=== PATIENT | female | born 1985 | race American Indian/Alaskan Native ===

== ENCOUNTER 2017-06-22 19:32 | Emergency (ER) | payer SELFPAY ==
[2017-06-22 19:46] VITALS: BP 172/75
[2017-06-22] MEDS ORDERED: Naproxen 500 MG Tab PO ONE (20:07)
--- NOTE | 2017-06-22 20:13 | EDM.PDOC ---
ED HPI GENERAL MEDICAL PROBLEM - General Chief Complaint: ENT Problem Stated Complaint: TOOTH PAIN Time Seen by Provider: 06/22/17 19:44 Source of Information: Reports: Patient, RN Notes Reviewed, Other ([place]) History Limitations: Reports: No Limitations - History of Present Illness INITIAL COMMENTS - FREE TEXT/NARRATIVE: The patient states that she has had a lower right toothache for the past 3 months. She has been experiencing episodic sharp pain. She states that she last saw a dentist around 3 months ago, who recommended that she have virtually all of her teeth removed. She states that while she has dental coverage at [facility], she cannot afford to drive all the way out there, and is therefore waiting for her 's dental insurance to become active. She denies recent fever or oral drainage. The patient does not have a PCP. Right Lower Tooth/Teeth Pain Score (Numeric/FACES): 10 - Related Data Allergies Allergy/AdvReac Type Severity Reaction Status Date / Time No Known Allergies Allergy Verified 06/22/17 19:46 Home Meds: Home Meds Insulin Detemir [Levemir] 80 unit SUBCUT BID 06/22/17 [History] Insulin Glarg,Human.Rec.Analog [LantUS] 0 unit SUBCUT ASDIRECTED 06/22/17 [ History] Naproxen 500 mg PO Q12H PRN #20 tablet 06/22/17 [Rx] Past Medical History Endocrine/Metabolic History: Reports: Diabetes, Type II, Obesity/BMI 30+ - Past Surgical History HEENT Surgical History: Reports: Tonsillectomy GI Surgical History: Reports: Appendectomy Musculoskeletal Surgical History: Reports: Other (See Below) (Left knee repair, open) Social & Family History - Tobacco Use Smoking Status *Q: Current Every Day Smoker Years of Tobacco use: 5 Packs/Tins Daily: 0.5 - Alcohol Use Alcohol Use History: No - Recreational Drug Use Recreational Drug Use: No - Living Situation & Occupation Living situation: Reports: , with Spouse 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) ED ROS ENT - Review of Systems Review Of Systems: See Below Constitutional: Reports: No Symptoms HEENT: Reports: Dental Pain (as per the HPI) Respiratory: Reports: No Symptoms Cardiovascular: Reports: No Symptoms Endocrine: Reports: No Symptoms GI/Abdominal: Reports: No Symptoms : Reports: No Symptoms Musculoskeletal: Reports: No Symptoms Skin: Reports: No Symptoms Neurological: Reports: No Symptoms Psychiatric: Reports: No Symptoms Hematologic/Lymphatic: Reports: No Symptoms Immunologic: Reports: No Symptoms ED EXAM, ENT - Physical Exam Exam: See Below Exam Limited By: No Limitations General Appearance: Alert, WD/WN, No Apparent Distress Eye Exam: Bilateral Eye: Normal Inspection Ears: Normal External Exam, Normal Canal, Hearing Grossly Normal, Normal TMs Nose: Normal Inspection, Normal Mucousa, No Blood Mouth/Throat: Normal Inspection, Normal Lips, Normal Oropharynx, Other (Teeth #1 , 2 absent. Tooth #3 with fillings. Teeth #4, 5 with anterior caries. Teeth #11 , 12, 13 with severe caries. Teeth #14, 15, 16, 17, 18, 19 absent. Tooth #20 with advanced decay. Tooth #21 with anterior jonathon. Tooth #22 with severe jonathon. Tooth #24 with anterior jonathon. Teeth #26, 27, 28, 29 with anterior caries. Tooth #30 (the tooth of concern) with advanced decay and likely fracture. Teeth #31, 32 absent. No gingival swelling or pointing.) Head: Atraumatic, Normocephalic Neck: Normal Inspection, Supple, Non-Tender, Full Range of Motion. No: Lymphadenopathy (L), Lymphadenopathy (R) Course - Vital Signs Last Recorded V/S: Last Vital Signs Temp 36.1 C 06/22/17 19:44 Pulse 74 06/22/17 19:44 Resp 16 06/22/17 19:44 BP 172/75 H 06/22/17 19:44 Pulse Ox 96 06/22/17 19:44 - Orders/Labs/Meds Meds: Medications Discontinued Medications Generic Name Dose Route Start Last Admin Trade Name Jose Luis PRN Reason Stop Dose Admin Naproxen 500 mg 06/22/17 20:07 06/22/17 20:23 Naprosyn PO 06/22/17 20:08 500 mg ONETIME ONE Administration - Re-Assessments/Exams Free Text/Narrative Re-Assessment/Exam: 06/22/17 20:08 The patient has advanced dental decay. Tooth #30, the tooth of concern, appears to be fractured with advanced decay, however, I do not any signs of infection. I will start the patient on naproxen and e-prescribe the same. We will provide the patient a list of local dentists. I suggested to her that she use Orajel or similar dental pain relief, along with a temporary cap, available at pharmacies. Departure - Departure Time of Disposition: 20:09 Disposition: Home, Self-Care 01 Condition: Good Clinical Impression: Dentalgia, Dental decay - Discharge Information Prescriptions: Naproxen 500 mg PO Q12H PRN #20 tablet PRN Reason: Pain Instructions: Dental Caries Referrals: PCP,None [Primary Care Provider] - Forms: ED Department Discharge Additional Instructions: You were seen in the emergency room for lower right dental pain. On examination, you have numerous teeth with advanced decay, although no dental infection was seen. You have been started on the pain medicine naproxen. Take one tablet every 12 hours, with food, as prescribed. Follow-up with a dentist at the next available appointment. If any other problems, please do not hesitate to return to the ER.
== END 2017-06-22 20:25 | disposition home or self-care (01) ==
LOC: JD.ED 19:32
DX: K02.9 Dental caries, unspecified (principal); F17.210 Nicotine dependence, cigarettes, uncomplicated; Z79.4 Long term (current) use of insulin
CPT/HCPCS: 99282; A9270; 99283

== ENCOUNTER 2017-07-01 12:33 | Emergency (ER) | payer MEDICAID ==
[2017-07-01 13:03] VITALS: BP 160/98
[2017-07-01] MEDS ORDERED: Ketorolac 60 MG/2 ML SDV IM ONE (13:29)
--- NOTE | 2017-07-01 13:30 | EDM.PDOC ---
ED HPI GENERAL MEDICAL PROBLEM - General Chief Complaint: General Stated Complaint: Dental pain Time Seen by Provider: 07/01/17 13:10 Source of Information: Reports: Patient, RN Notes Reviewed History Limitations: Reports: No Limitations - History of Present Illness INITIAL COMMENTS - FREE TEXT/NARRATIVE: 32 year old female presents to the ED today with complaints of dental pain. She is currently taking Aleve and Tylenol with little improvement in pain. She is without dental insurance and therefore has not seen a dentist. She has several teeth that need to be removed. She reports pain is to both her lower, back molars. She denies fever or chills. She feels that her face is swollen. She also has ear pain. 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) Other Treatments SIGNAL TOWER OPERATOR: ibuprofen at 1000 Tooth/Teeth Pain Score (Numeric/FACES): 10 - Related Data Allergies Allergy/AdvReac Type Severity Reaction Status Date / Time No Known Allergies Allergy Verified 07/01/17 12:57 Home Meds: Home Meds Insulin Detemir [Levemir] 80 unit SUBCUT BID 06/22/17 [History] Insulin Glarg,Human.Rec.Analog [LantUS] 0 unit SUBCUT ASDIRECTED 06/22/17 [ History] Naproxen 500 mg PO Q12H PRN #20 tablet 06/22/17 [Rx] Past Medical History HEENT History: Reports: Other (See Below) Other HEENT History: tooth decay Endocrine/Metabolic History: Reports: Diabetes, Type II, Obesity/BMI 30+ - Past Surgical History HEENT Surgical History: Reports: Tonsillectomy GI Surgical History: Reports: Appendectomy Musculoskeletal Surgical History: Reports: Other (See Below) Social & Family History - Family History Family Medical History: Noncontributory - Tobacco Use Smoking Status *Q: Current Every Day Smoker Years of Tobacco use: 5 Packs/Tins Daily: 0.4 - Recreational Drug Use Recreational Drug Use: No - Living Situation & Occupation Living situation: Reports: , with Spouse 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 Denies: Fever, Chills HEENT: Reports: Dental Pain, Ear Pain. Denies: Sinus Problem, Throat Pain, Throat Swelling Respiratory: Reports: No Symptoms Cardiovascular: Reports: No Symptoms ED EXAM, ENT - Physical Exam Exam: See Below Exam Limited By: No Limitations General Appearance: Alert, Moderate Distress, Obese Ears: Normal External Exam, Hearing Grossly Normal, Normal TMs Nose: Normal Inspection, Normal Mucousa Mouth/Throat: Normal Lips, Normal Oropharynx, Dental Tenderness (both posterior , lower molars ), Other (several fractured teeth with diffuse dental decay. ). No: Gum Swelling, Throat Swelling, Tonsillar Exudates, Tonsillar Swelling Head: Atraumatic, Normocephalic Neck: Normal Inspection, Supple, Non-Tender, Full Range of Motion. No: Lymphadenopathy (L), Lymphadenopathy (R) Respiratory/Chest: No Respiratory Distress Cardiovascular: Regular Rate, Rhythm Course - Vital Signs Last Recorded V/S: Last Vital Signs Temp 98.6 F 07/01/17 12:58 Pulse 89 07/01/17 12:58 Resp BP 160/98 H 07/01/17 12:58 Pulse Ox 98 07/01/17 12:58 - Orders/Labs/Meds Meds: Medications Discontinued Medications Generic Name Dose Route Start Last Admin Trade Name Jose Luis PRN Reason Stop Dose Admin Ketorolac Tromethamine 60 mg 07/01/17 13:29 07/01/17 13:48 Toradol IM 07/01/17 13:30 60 mg ONETIME ONE Administration - Re-Assessments/Exams Free Text/Narrative Re-Assessment/Exam: Patient treated with Toradol in the ED today for pain. I called in prescription for compounded local anesthetic to [facility] called quadcaine. This will help relieve dental pain without the need for narcotics. Will also start her on augmentin 875 PO BID x7 days. Patient was encouraged to call [facility] and see if any of them take her medicaid. Educated on return precautions. Discharge instructions as documented. Departure - Departure Time of Disposition: 13:37 Disposition: Home, Self-Care 01 Condition: Good Clinical Impression: Dental decay, Pain, dental - Discharge Information Referrals: PCP,Not In Area [Primary Care Provider] - Forms: ED Department Discharge Additional Instructions: Prescriptions were called to [facility]. They are located in [facility] ([facility] Their address is [address] [place] [address] Prescriptions: 1. Quadcaine to areas of dental pain as needed 2. Augmentin 1 tab twice a day for a total of 7 days Follow-up with Dentist JILLIAN
== END 2017-07-01 14:14 | disposition home or self-care (01) ==
LOC: JD.ED 12:33
DX: K02.9 Dental caries, unspecified (principal); E11.9 Type 2 diabetes mellitus without complications; E66.9 Obesity, unspecified; F17.210 Nicotine dependence, cigarettes, uncomplicated; Z90.49 Acquired absence of other specified parts of digestive tract; Z98.890 Other specified postprocedural states; Z79.4 Long term (current) use of insulin; Z68.41 Body mass index [BMI] 40.0-44.9, adult
CPT/HCPCS: 96372; 99282; J1885; 99283